=== PATIENT | male | born 1960 | race Caucasian/White ===

== ENCOUNTER → 2017-08-26 | Outpatient (CLI) | payer OTHER | LOC: FIMAGING 14:29 | PROVIDERS: ATTEND Family Medicine | DX: E04.9 Nontoxic goiter, unspecified (principal) ==

== ENCOUNTER → 2017-12-23 | Outpatient (CLI) | payer OTHER | LOC: BMCIMAGING 09:24 | PROVIDERS: ATTEND Physician Assistant | DX: M25.562 Pain in left knee (principal) ==